=== PATIENT | female | born 1955 | race Caucasian/White ===

== ENCOUNTER 2018-01-02 12:38 | Emergency (ER) | payer OTHER ==
[~2018-01-02] VITALS: Ht 160 cm; Wt 86.6 kg
[2018-01-02 13:33] LABS: BASOPHIL (%) 0.6 % (0-1); EOSINOPHIL COUNT 0.1 K/uL (0-0.3); HEMATOCRIT 38.5 % (36.0-46.0); HEMOGLOBIN 12.7 G/DL (11.9-15.5); IMMATURE GRANULOCYTE (%) 0.4 % (0.0-0.7); LYMPHOCYTE (%) 28.6 % (15-42); LYMPHOCYTE COUNT 1.4 K/uL (1.0-2.8); MCH 28.9 PG (29.0-34.0); MCV 87.5 FL (83-99); MONOCYTE (%) 7.4 % (3-12); MONOCYTE COUNT 0.4 K/uL (0-0.8); PLATELET COUNT 300 K/uL (156-360); RBC DIS.WIDTH-SD 41.6 % (39-53); WHITE BLOOD COUNT 4.9 K/uL (4.1-10.2)
[2018-01-02 13:42] LABS: CHLORIDE 104 mEq/L (99-109); D-DIMER ELISA < 150.00 ng/mLDDU (<230); POTASSIUM 4.4 mEq/L (3.7-5.4); PTT 31.6 SEC (25-37); SODIUM 140 mEq/L (136-147)
[2018-01-02 13:43] LABS: GLUCOSE 91 mg/dL (70-99)
[2018-01-02 13:47] LABS: CREATININE 0.9 mg/dL (0.6-1.3)
[2018-01-02 13:48] LABS: UREA NITROGEN (BUN) 23 mg/dL (9-23)
[2018-01-02 13:51] LABS: GFR ESTIMATE (CALCULATED) > 59 mL/min/
[2018-01-02 13:53] LABS: TROP-I INTERPRETATION NEGATIVE; TROPONIN-I < 0.01 ng/mL (0.0-0.30)
[2018-01-02 16:39] LABS: TROP-I INTERPRETATION NEGATIVE; TROPONIN-I < 0.01 ng/mL (0.0-0.30)
[2018-01-02 17:15] VITALS: BP 127/78
== END 2018-01-02 17:20 | disposition home or self-care (01) ==
LOC: EME 12:38
PROVIDERS: Emergency Medicine
DX: R07.89 Other chest pain (principal)
CPT/HCPCS: 71045; 71250; 80048; 84484; 85025; 85379; 85610; 85730; 93005; 99281; 99284; J2270